=== PATIENT | female | born 1980 | race Hispanic/Latino ===

== ENCOUNTER 2017-01-30 19:00 | Emergency (ER) | payer SELFPAY ==
[~2017-01-30] VITALS: Ht 167.6 cm; Wt 82.1 kg
[~2017-01-30 19:00] MED LIST: PNV1TABL9 PO
[2017-01-30] MEDS ORDERED: cefTRIAXone 1 GM (ROCEPHIN) VIAL IM ONE (19:15)
[2017-01-30] MEDS ORDERED: DEXAMETHASONE PF 10 MG/ML (DECADRON) VIAL IM ONE (19:15)
[2017-01-30] MEDS ORDERED: LIDOCAINE 1% INJ 20 ML (XYLOCAINE) VIAL INJ ONE (19:15)
[2017-01-30] MEDS ORDERED: CEPH-507 PO (19:15)
--- NOTE | 2017-01-30 19:16 | ED Integumentary General ---
General Chief Complaint: Bite-Animal/Human/Insect Stated Complaint: BUMP ON RT ARM Nursing Triage Note: pt complains of a bite on her right wrist from today and a red line going up her right arm as well. Source: patient Exam Limitations: no limitations History of Present Illness Time seen by provider: 19:12 Initial Comments To ER with complaints of a bite on her right wrist that she first noticed this morning. No systemic symptoms such as nausea vomiting or chills but she does report headache. She is unsure if this related. She did not see anything bite her and is uncertain what this may be. Timing/Duration: just prior to arrival Severity: moderate Associated Symptoms: denies symptoms Allergies and Home Medications Allergies Coded Allergies: No Known Drug Allergies (Unverified , 11/23/14) Home Medications Pnv Cmb#21/Iron/Folic Acid 1 Each Tablet, 1 EACH PO DAILY, (Reported) Constitutional: see HPI, No chills, No fever EENTM: see HPI Respiratory: no symptoms reported Cardiovascular: no symptoms reported Genitourinary: no symptoms reported Musculoskeletal: no symptoms reported Skin: no symptoms reported Psychiatric/Neurological: No Symptoms Reported Endocrine: No Symptoms Reported Past Nlmtfqh-Vaptoq-Vhqckx Hx Patient Social History Recent Foreign Travel: No Contact w/Someone Who Travel: No Recent Infectious Disease Expo: No Surgeries HX Surgeries: Yes Surgeries: Appendectomy Neurological Hx Neurological Disorders: Yes Neurological Disorders: Headaches /Migraines Genitourinary Hx Genitourinary Disorders: No Gastrointestinal Hx Gastrointestinal Disorders: No Musculoskeletal Hx Musculoskeletal Disorders: No Endocrine Hx Endocrine Disorders: No Cancer Hx Cancer: No Psychosocial Hx Psychiatric Problems: Yes Behavioral Health Disorders: Anxiety, Depression Integumentary HX Skin/Integumentary Disorder: No Blood Transfusions Hx Blood Disorders: No Family Medical History Significant Family History: No Pertinent Family Hx Physical Exam Vital Signs Vital Sign - Last 12Hours 01/30/17 19:09 Temp 98.4 Pulse 72 Resp 20 B/P (MAP) 122/53 Pulse Ox 97 O2 Delivery Room Air Capillary Refill : Less Than 3 Seconds General Appearance: WD/WN, no apparent distress HEENT: PERRL/EOMI, normal ENT inspection Neck: non-tender, full range of motion Respiratory: no respiratory distress, no accessory muscle use Gastrointestinal: non tender, soft Extremities: normal range of motion, non-tender Neurologic/Psychiatric: alert, normal mood/affect, oriented x 3 Skin: normal color, warm/dry Skin Problem Character: papules, other (there is erythema surrounding a papule to the radial side of the right wrist. There is no swelling. There is however , lymphangitis extending all the way up the arm terminating at the axilla. She has a similar appearing lesion to the right flank without lymphangitis, which is decided that there is a half-dollar sized area of erythema surrounding a central papule.) Progress/Results/Core Measures Results/Orders My Orders Orders - NARA SORIA APRN Dexamethasone Pf Injection (Decadron Pf (01/30/17 19:15) Ceftriaxone Injection (Rocephin Injectio (01/30/17 19:15) Lidocaine 1% Injection (Xylocaine 1% Inj (01/30/17 19:15) Vital Signs/I&O Vital Sign - Last 12Hours 01/30/17 19:09 Temp 98.4 Pulse 72 Resp 20 B/P (MAP) 122/53 Pulse Ox 97 O2 Delivery Room Air Blood Pressure Mean: 76 Departure Impression Impression: Primary Impression: Lymphangitis Disposition: 01 HOME, SELF-CARE Condition: Stable Departure-Patient Inst. Decision time for Depature: 19:14 Referrals: JAMES JACOME DO (PCP) Primary Care Physician KELVIN ADAMS (Family) Primary Care Physician Patient Instructions: Insect Bites and Stings (DC) Add. Discharge Instructions: 1. Return to ER for any concerns such as fever, worsening redness or swelling 2. Antibiotic as directed 3. See your doctor next week All discharge instructions reviewed with patient and/or family. Voiced understanding. Scripts Cephalexin (Keflex) 500 Mg Capsule 500 MG PO TID, #15 CAP Prov: NARA SORIA APRN 01/30/17 NARA SORIA APRN Jan 30, 2017 19:15
[2017-01-30 19:27] VITALS: BP 122/53
== END 2017-01-30 19:27 | disposition home or self-care (01) ==
LOC: EDUNIT# 19:00 → ER 19:04
DX: I89.1 Lymphangitis (principal); G43.909 Migraine, unspecified, not intractable, without status migrainosus; F41.9 Anxiety disorder, unspecified; F32.9 Major depressive disorder, single episode, unspecified; Z90.49 Acquired absence of other specified parts of digestive tract
CPT/HCPCS: 96372; 99284

== ENCOUNTER 2017-03-12 19:36 | Emergency (ER) | payer SELFPAY ==
[~2017-03-12] VITALS: Ht 167.6 cm; Wt 82.1 kg
[~2017-03-12 19:36] MED LIST changes: +CEPH-507 PO
[2017-03-12] MEDS ORDERED: PERM60CR17 TP (20:31)
[2017-03-12] MEDS ORDERED: HYDR-700 PO (20:31)
[2017-03-12] MEDS ORDERED: MOME15CR17 TP (20:31)
--- NOTE | 2017-03-12 20:31 | ED Integumentary General ---
General Chief Complaint: Skin/Wound Problems Stated Complaint: RASH Nursing Triage Note: c/o generalized rash, denies taking medication Source: patient History of Present Illness Time seen by provider: 20:20 Initial Comments PT STATES SHE BELIEVES SHE HAS SCABIES NOTICED A VERY ITCHY RASH OVER ARMS, LEGS AND TRUNK THIS AM MALE FRIEND WAS DX YESTERDAY WITH SCABIES AND CALLED PT LAST NIGHT--SHE HAS BEEN STAYING WITH HIM ON WEEKENDS. HE HAS THE SAME RASH PT HAS NO NEW MEDICATIONS, FOODS, PRODUCTS, ETC. NO HISTORY OF SIMILAR HAS NOT TAKEN ANYTHING FOR SYMPTOMS 2 Y.O. SON DOES NOT HAVE SYMPTOMS PCP: [facility] Allergies and Home Medications Allergies Coded Allergies: No Known Drug Allergies (Unverified , 11/23/14) Home Medications Cephalexin 500 Mg Capsule, 500 MG PO TID, #15 Prescribed by: NARA SORIA on 01/30/171914 Hydroxyzine HCl 25 Mg Tablet, 25-50 MG PO Q6H, #20 Prescribed by: SAMIRA AMES on 03/12/172030 Mometasone Furoate 15 Gm Cream..g., 0 TP TID, #1 Prescribed by: SAMIRA AMES on 03/12/172030 Permethrin 60 Gm Cream..g., 60 GM TP UD, #1 Ref 1 APPLY DIRECTED. REPEAT TREATMENT IN 1 WEEK Prescribed by: SAMIRA AMES on 03/12/172030 Pnv Cmb#21/Iron/Folic Acid 1 Each Tablet, 1 EACH PO DAILY, (Reported) Constitutional: no symptoms reported : No LMP: Feb 24, 2017 (NO CONTROL) Musculoskeletal: no symptoms reported Skin: see HPI, pruritus, rash Psychiatric/Neurological: No Symptoms Reported Past Obyvskl-Hvscuf-Jjwvyt Hx Patient Social History Alcohol Use: Denies Use Recreational Drug Use: No Smoking Status: Current Everyday Smoker Type Used: Cigarettes 2nd Hand Smoke Exposure: Yes Recent Foreign Travel: No Contact w/Someone Who Travel: No Recent Infectious Disease Expo: No Recent Hopitalizations: No Physical Abuse: No Sexual Abuse: No Seasonal Allergies Seasonal Allergies: No Surgeries History of Surgeries: Yes Surgeries: Appendectomy Respiratory History of Respiratory Disorde: No Cardiovascular History of Cardiac Disorders: No Neurological History of Neurological Disord: Yes Neurological Disorders: Headaches /Migraines Genitourinary History of Genitourinary Disor: No Gastrointestinal History of Gastrointestinal Di: No Musculoskeletal History of Musculoskeletal Dis: No Endocrine History of Endocrine Disorders: No HEENT History of HEENT Disorders: No Cancer History of Cancer: No Psychosocial History of Psychiatric Problem: Yes Behavioral Health Disorders: Anxiety, Depression Suicide Risk Score: 0 Integumentary History of Skin or Integumenta: No Blood Transfusions History of Blood Disorders: No Family Medical History Significant Family History: No Pertinent Family Hx Physical Exam Vital Signs Vital Sign - Last 12Hours 03/12/17 03/12/17 20:17 20:34 Temp 98.7 Pulse 72 Resp 18 B/P (MAP) 125/75 Pulse Ox 99 O2 Delivery Room Air Capillary Refill : Less Than 3 Seconds General Appearance: WD/WN, no apparent distress HEENT: PERRL/EOMI, other (SCABBED ABRASION TO LEFT CHEEK) Neck: normal inspection Cardiovascular: regular rate, rhythm Respiratory: normal breath sounds Gastrointestinal: non tender, soft Back: normal inspection Extremities: normal inspection, no pedal edema, normal capillary refill Neurologic/Psychiatric: blue crabber II-XII nml as tested, no motor/sensory deficits, alert, oriented x 3 Skin: normal color, warm/dry, rash (MULTIPLE DISCRETE, ERYTHEMATOUS PAPULES ON DORSUM OF HANDS, FINGERS, ARMS, TRUNK AND UPPER LEGS. ) Progress/Results/Core Measures Results/Orders Vital Signs/I&O Vital Sign - Last 12Hours 03/12/17 03/12/17 20:17 20:34 Temp 98.7 98.7 Pulse 72 72 Resp 18 18 B/P (MAP) 125/75 Pulse Ox 99 99 O2 Delivery Room Air Blood Pressure Mean: 92 Departure Impression Impression: Primary Impression: Scabies Disposition: 01 HOME, SELF-CARE Condition: Stable Departure-Patient Inst. Referrals: [facility] Patient Instructions: Scabies (DC) Add. Discharge Instructions: APPLY MEDICATION PRESCRIBED, THEN LAUNDER EVERYTHING YOUR SKIN HAS COME IN CONTACT WITH FOR THE LAST 1-2 WEEKS SPRAY FURNITURE WITH OTC MITE/LICE SPRAY PLACE ALL NON-LAUDERABLE ITEMS IN BLACK TRASH BAGS AND PLACE IN A DARK CLOSET FOR 2 WEEKS REPEAT TREATMENT IN 1 WEEK FOLLOW UP WITH [facility] IN 2 WEEKS IF NO BETTER All discharge instructions reviewed with patient and/or family. Voiced understanding. Scripts Hydroxyzine HCl (Hydroxyzine HCl) 25 Mg Tablet 25-50 MG PO Q6H for Itching, #20 TAB Prov: SAMIRA AMES DO 03/12/17 Mometasone Furoate (Elocon) 15 Gm Cream..g. 0 TP TID, #1 TUBE Prov: SAMIRA AMES DO 03/12/17 Permethrin (Elimite) 60 Gm Cream..g. 60 GM TP UD, #1 TUBE 1 Refill APPLY DIRECTED. REPEAT TREATMENT IN 1 WEEK Prov: SAMIRA AMES DO 03/12/17 SAMIRA AMES DO Mar 12, 2017 20:31
[2017-03-12 20:34] VITALS: BP 125/75
== END 2017-03-12 20:33 | disposition home or self-care (01) ==
LOC: EDUNIT# 19:36 → ER 19:38
DX: B86 Scabies (principal); G43.909 Migraine, unspecified, not intractable, without status migrainosus; F41.9 Anxiety disorder, unspecified; F32.9 Major depressive disorder, single episode, unspecified; F17.210 Nicotine dependence, cigarettes, uncomplicated; Z90.49 Acquired absence of other specified parts of digestive tract
CPT/HCPCS: 99282

== ENCOUNTER → 2018-02-04 | Outpatient (CLI) | payer OTHER ==
[~2018-02-04] MED LIST changes: +HYDR-700 PO; +MOME15CR17 TP; +PERM60CR17 TP
--- NOTE | 2018-02-04 14:36 | Diagnostic Imaging Report ---
INDICATION: survey TECHNIQUE: Multiple real-time grayscale images were obtained over the gravid uterus. COMPARISON: None FINDINGS: There are no prior studies available for comparison. There is a single live fetus in cephalic presentation. heart motion was noted and a rate of 136 bpm was recorded. There were no abnormalities identified. The placenta is anterior and there is no previa. The amniotic fluid volume is within normal limits. The growth parameters are fairly uniform. The cervix was visualized and measures 4.4 cm in length. IMPRESSION: 1. There is a single live fetus approximately 20 weeks 6 days gestation plus or minus one week. The EDC is 06/11/2018. 2. There were no abnormalities identified. 3. The growth parameters are fairly uniform. Biometrical measurements are as follows: Biparietal 5.06 cm, age 21 weeks 3 days. Head circumference 19.32 cm, age 21 weeks 4 days. Abdominal circumference 16.95 cm, age 22 weeks 0 days. Femur length 3.79 cm, age 22 weeks 1 days. Sonographic estimate age: 21 weeks 6 days. Sonographic estimated date of delivery: 06/11/2018. Estimated Weight: 463 gm (+/- 68 gm). LMP percentile: 79%. heart rate: 136 beats per minute. number: 1 of 1. Dictated by: Dictated on workstation # [id number]
== END ==
LOC: RAD 12:02
PROVIDERS: ATTEND Obstetrics & Gynecology
DX: Z36.89 Encounter for other specified antenatal screening (principal); Z3A.21 21 weeks gestation of pregnancy
CPT/HCPCS: 76805